=== PATIENT | female | born 1985 | race American Indian/Alaskan Native ===

== ENCOUNTER 2017-03-30 14:56 | Emergency (ER) | payer MEDICAID ==
[2017-03-30 16:47] LABS: Basophils % (Auto) 0.2 % (0.0-1.8); Hemoglobin 10.5 gm/dl (10.1-14.3)
[2017-03-30 16:50] LABS: Anion Gap 19 mmol/L; BUN/Creatinine Ratio 18.88; Blood Urea Nitrogen 17 mg/dL (7-17); Calcium 9.3 mg/dL (8.4-10.2); Carbon Dioxide 24 mmol/L (22-30); Chloride 100.9 mmol/L (98-107); Glucose 89 mg/dL (65-100); Potassium 3.9 mmol/L (3.6-5.0); Sodium 140 mmol/L (137-145)
[2017-03-30 17:27] LABS: Hematocrit 33.6 % (30.3-42.9); Mean Corpuscular HGB Conc 31 % (30-34); Mean Corpuscular Hemoglobin 26 pg (28-32); Mean Corpuscular Volume 84 fl (79-97); Platelet Count 483 K/mm3 (140-440); Red Blood Count 3.99 M/mm3 (3.65-5.03); Red Cell Distribution Width 16.2 % (13.2-15.2)
[2017-03-30] MEDS ORDERED: DILAUDID IM ONE (21:42)
--- NOTE | 2017-03-30 21:45 | Emergency Department Report ---
ED General Adult HPI - General Chief complaint: Chest Pain Stated complaint: BUG BITE/RIGHT LEG Time Seen by Provider: 03/30/17 21:10 Source: patient, EMS (ems notes not available at time of chart dictation), RN notes reviewed Mode of arrival: Stretcher Limitations: No Limitations - History of Present Illness Initial comments: This is a 32-year-old female. She is previously unknown to me. She reports a past medical history of asthma, hypertension, obesity and preeclampsia. The patient presents to the ER complaining of right lateral leg pain. It is distal to the knee. It is sharp. It increases with palpation and range of motion. It decreases with rest. Patient denies proximal thigh pain and hip pain. She denies knee pain. While in the ER, the patient did complain of chest burning and pain. This started earlier on in the morning. It has since resolved. The pain does not radiate to the back, arms or neck. There is no vomiting diaphoresis. There is no shortness of breath. The patient does not take control tablets. No recent trips greater than 4 hours. No recent hospital admissions. -: Gradual Location: chest, right, lower extremity Radiation: non-radiation Severity scale (0 -10): 10 Quality: aching Improves with: rest Worsens with: movement Associated Symptoms: chest pain - Related Data Previous Rx's Medication Instructions Recorded Last Taken Type ALBUTEROL Inhaler [ProAir HFA 2 puff IH QID PRN #1 inhalation 08/20/15 Unknown Rx Inhaler] Azithromycin [Zithromax TAB] 250 mg PO QDAY #4 tablet 08/20/15 Unknown Rx Omeprazole [PriLOSEC] 20 mg PO QDAY #7 capsule. 08/20/15 Unknown Rx Prednisone [predniSONE 5 mg (6-Day 5 mg PO .TAPER #1 tab.ds.pk 08/20/15 Unknown Rx Pack, 21 Tabs)] Doxycycline [Vibramycin] 100 mg PO Q12HR #10 capsule 03/31/17 Unknown Rx Ibuprofen [Motrin] 600 mg PO Q8H PRN #30 tablet 03/31/17 Unknown Rx Allergies Allergy/AdvReac Type Severity Reaction Status Date / Time levofloxacin [From Levaquin] Allergy Angioedema Verified 07/29/15 11:58 Penicillins Allergy Shortness Verified 07/29/15 11:58 of Breath ED Review of Systems ROS: Stated complaint: BUG BITE/RIGHT LEG Other details as noted in HPI Constitutional: denies: malaise Eyes: denies: vision change ENT: denies: epistaxis Respiratory: denies: wheezing Cardiovascular: chest pain Gastrointestinal: denies: abdominal pain Genitourinary: denies: dysuria Musculoskeletal: arthralgia, myalgia Skin: rash Neurological: denies: headache Psychiatric: anxiety ED Past Medical Hx - Past Medical History Hx Hypertension: Yes Hx Asthma: Yes Additional medical history: PREECLAMPSIA. OBESITY - Surgical History Past Surgical History?: Yes Hx Breast Surgery: No - Social History Smoking Status: Current Every Day Smoker Substance Use Type: None, Alcohol - Medications Home Medications: Home Medications Medication Instructions Recorded Confirmed Last Taken Type ALBUTEROL Inhaler [ProAir HFA 2 puff IH QID PRN #1 inhalation 08/20/15 Unknown Rx Inhaler] Azithromycin [Zithromax TAB] 250 mg PO QDAY #4 tablet 08/20/15 Unknown Rx Omeprazole [PriLOSEC] 20 mg PO QDAY #7 capsule.dr 08/20/15 Unknown Rx Prednisone [predniSONE 5 mg (6-Day 5 mg PO .TAPER #1 tab.ds.pk 08/20/15 Unknown Rx Pack, 21 Tabs)] Doxycycline [Vibramycin] 100 mg PO Q12HR #10 capsule 03/31/17 Unknown Rx Ibuprofen [Motrin] 600 mg PO Q8H PRN #30 tablet 03/31/17 Unknown Rx ED Physical Exam - General Limitations: Physical Limitation General appearance: alert, in no apparent distress - Head Head exam: Present: atraumatic, normocephalic - Eye Eye exam: Present: normal appearance - ENT ENT exam: Present: normal exam, normal orophraynx, mucous membranes moist, normal external ear exam - Neck Neck exam: Present: normal inspection, full ROM. Absent: tenderness, meningismus - Respiratory Respiratory exam: Present: normal lung sounds bilaterally. Absent: respiratory distress, wheezes, rales, rhonchi, stridor, chest wall tenderness, accessory muscle use, decreased breath sounds, prolonged expiratory - Cardiovascular Cardiovascular Exam: Present: regular rate, normal rhythm, normal heart sounds. Absent: bradycardia, tachycardia, irregular rhythm, systolic murmur, diastolic murmur, rubs, gallop - GI/Abdominal GI/Abdominal exam: Present: soft, normal bowel sounds. Absent: distended, tenderness, guarding, rebound, rigid, pulsatile mass - Extremities Exam Extremities exam: Present: full ROM, tenderness, normal capillary refill, calf tenderness, other (the compartments are soft. There is right lateral distal extremity induration, and a punctate lesion, as well as hyperpigmentation. 2+ pulses noted in the bilateral upper and lower extremities. There is no palpable cord. There is a negative Homans sign.The pelvis is stable. There is no long bony tenderness. There is no crepitus.). Absent: pedal edema, joint swelling - Back Exam Back exam: Present: normal inspection - Neurological Exam Neurological exam: Present: alert, oriented X3 (patient has 5 out of 5 strength in bilateral upper and lower extremities. She is moving the bilateral upper and lower extremity is without difficulty), other (Extraocular movements intact. Tongue midline. No facial droop. Facial sensation intact to light touch in the V1, V2, V3 distribution bilaterally. 5 and 5 strength in 4 extremities.. Sensation is intact to light touch in 4 extremities.). Absent: motor sensory deficit - Psychiatric Psychiatric exam: Present: anxious - Skin Skin exam: Present: warm, erythema. Absent: rash ED Course Vital Signs 03/30/17 03/30/17 03/30/17 15:49 20:33 20:43 Temperature 98.7 F Pulse Rate 102 H 99 H Respiratory 16 18 20 Rate Blood Pressure 134/85 Blood Pressure [Left] Blood Pressure 140/84 [Right] O2 Sat by Pulse 100 100 100 Oximetry 03/30/17 03/30/17 03/30/17 22:00 22:03 22:49 Temperature 98.0 F Pulse Rate 101 H Respiratory 18 20 14 Rate Blood Pressure Blood Pressure [Left] Blood Pressure 130/76 [Right] O2 Sat by Pulse Oximetry 03/30/17 03/30/17 03/31/17 22:50 22:51 00:00 Temperature 97.8 F Pulse Rate 96 H 108 H 99 H Respiratory 12 13 18 Rate Blood Pressure 154/90 154/90 Blood Pressure 139/81 [Left] Blood Pressure [Right] O2 Sat by Pulse 100 99 100 Oximetry 03/31/17 00:01 Temperature Pulse Rate Respiratory Rate Blood Pressure 180/136 Blood Pressure [Left] Blood Pressure [Right] O2 Sat by Pulse 94 Oximetry - Reevaluation(s) Reevaluation #1: 03/30/17 22:30 Differential diagnosis: Cellulitis, myositis, DVT, ACS, pneumonia, pulmonary embolus, Gaston's cyst, chondritis, costochondritis, anxiety Assessment and plan: 32-year-old female with 2 complaints. Her main complaint is right lower extremity pain. The lesion is indurated and tender. Most likely cellulitis. Gaston's cyst and DVT also a possibility, although the patient has no risk factors for DVT, she is low risk by well's criteria. While in the ER, she did complain of chest pain. She has 2 negative troponins, EKG is morphologically unremarkable 2, low risk by well's criteria, low risk by STELLA score, low risk by heart score. She states that she is not . We will check a d-dimer, creatinine kinase, x-ray of the chest, x-ray the fibula/ tibia. Compartments are soft. Pulses are present. Patient will be given crutches if she is unable to weight bear. Reevaluation #2: 03/31/17 01:39 The patient is reevaluated by myself multiple times while in the department. She is speaking on the cell phone and in no distress. CT scan negative for pulmonary embolus. Outpatient vascular lab DVT study ordered. She will be discharged with pain medication, empiric antibiotics, crutches, weightbearing as tolerated. Return precautions are reviewed. ED Medical Decision Making - Lab Data Result diagrams: 03/30/17 16:05 03/30/17 16:05 Vital Signs 03/30/17 03/30/17 03/30/17 15:49 20:33 20:43 Temperature 98.7 F Pulse Rate 102 H 99 H Respiratory 16 18 20 Rate Blood Pressure 134/85 Blood Pressure 140/84 [Right] O2 Sat by Pulse 100 100 100 Oximetry 03/30/17 22:03 Temperature Pulse Rate Respiratory 20 Rate Blood Pressure Blood Pressure [Right] O2 Sat by Pulse Oximetry Vital Signs 03/30/17 03/30/17 03/30/17 15:49 20:33 20:43 Temperature 98.7 F Pulse Rate 102 H 99 H Respiratory 16 18 20 Rate Blood Pressure 134/85 Blood Pressure 140/84 [Right] O2 Sat by Pulse 100 100 100 Oximetry 03/30/17 22:03 Temperature Pulse Rate Respiratory 20 Rate Blood Pressure Blood Pressure [Right] O2 Sat by Pulse Oximetry Lab Results 03/30/17 03/30/17 03/30/17 Range/Units 16:05 16:05 18:12 WBC 13.0 H (4.5-11.0) K/mm3 RBC 3.99 (3.65-5.03) M/mm3 Hgb 10.5 (10.1-14.3) gm/dl Hct 33.6 (30.3-42.9) % MCV 84 (79-97) fl MCH 26 L (28-32) pg MCHC 31 (30-34) % RDW 16.2 H (13.2-15.2) % Plt Count 483 H (140-440) K/mm3 Lymph % (Auto) 10.0 L (13.4-35.0) % [place] % (Auto) 7.6 H (0.0-7.3) % Eos % (Auto) 1.0 (0.0-4.3) % Baso % (Auto) 0.2 (0.0-1.8) % Lymph # 1.3 (1.2-5.4) K/mm3 [place] # 1.0 H (0.0-0.8) K/mm3 Eos # 0.1 (0.0-0.4) K/mm3 Baso # 0.0 (0.0-0.1) K/mm3 Seg Neutrophils % 81.2 H (40.0-70.0) % Seg Neutrophils # 10.6 H (1.8-7.7) K/mm3 Sodium 140 (137-145) mmol/L Potassium 3.9 (3.6-5.0) mmol/L Chloride 100.9 (98-107) mmol/L Carbon Dioxide 24 (22-30) mmol/L Anion Gap 19 mmol/L BUN 17 (7-17) mg/dL Creatinine 0.9 (0.7-1.2) mg/dL Estimated GFR > 60 ml/min BUN/Creatinine Ratio 18.88 % Glucose 89 (65-100) mg/dL Calcium 9.3 (8.4-10.2) mg/dL Troponin T < 0.010 < 0.010 (0.00-0.029) ng/mL - EKG Data -: EKG Interpreted by Ar EKG shows normal: sinus rhythm - EKG Data 03/30/17 22:31 EKG #1 demonstrates sinus tachycardia, 101 bpm, normal axis, QTC 466 ms. High left ventricular voltage is present by criteria in lead aVL and lead 1. Atrial enlargement is suggested. Not morphologically consistent with STEMI. When compared to prior EKG from 2016, atrial enlargement and high left ventricular voltage appear to be new. EKG #2 demonstrates normal sinus, normal intervals, QTC 450 ms, otherwise unchanged compared to prior. Not morphologically consistent with STEMI Critical care attestation.: If time is entered above; I have spent that time in minutes in the direct care of this critically ill patient, excluding procedure time. ED Disposition Clinical Impression: Chest pain, Right leg pain Disposition: TO HOME OR SELFCARE Is pt being admited?: No Does the pt Need Aspirin: No Condition: Good Instructions: Chest Pain (ED), Arthralgia (ED) Additional Instructions: Take the pain medication, antibiotics as directed. Make certain to eat prior to taking the medications. Contact the vascular lab anytime after 9:00 in the morning as soon as possible, to arrange outpatient ultrasound of the right lower extremity. Make certain to bring the requisition form with you. Weight-bear as tolerated, use the crutches as needed. 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 Return to the ER right away with new pain , worsened pain, migration of pain, fevers, chills, chest pain, shortness of breath, streaking, worsened redness, worsening pain, confusion, inability to tolerate liquid feeds. Prescriptions: Doxycycline [Vibramycin] 100 mg PO Q12HR #10 capsule Ibuprofen [Motrin] 600 mg PO Q8H PRN #30 tablet PRN Reason: Pain Referrals: PRIMARY CAREMD [Primary Care Provider] - 3-5 Days ELE PERDOMO MD [Staff Physician] - 3-5 Days ABIGAIL VILLALPANDO MD [Staff Physician] - 3-5 Days KATEY TOWNSEND MD [Staff Physician] - 3-5 Days
[2017-03-31] MEDS ORDERED: NACL ONE (00:53)
--- NOTE | 2017-03-31 01:11 | XRay Report ---
FINAL REPORT PROCEDURE: XR TIBIA FIBULA 2V RT TECHNIQUE: RIGHT tibia and fibula radiographs, AP and lateral views. CPT 29406 HISTORY: rle pain COMPARISON: No prior studies are available for comparison. FINDINGS: Fracture (s) and/or Dislocation(s): None . Joint space(s): Normal . Soft tissues: Normal . Bone mineralization: Normal . Foreign bodies: None . IMPRESSION: No evidence of an acute fracture or dislocation.
--- NOTE | 2017-03-31 01:13 | XRay Report ---
FINAL REPORT PROCEDURE: XR CHEST 1V AP TECHNIQUE: Chest radiograph anteroposterior view. CPT 13949 HISTORY: cp sob COMPARISON: No prior studies are available for comparison. FINDINGS: Heart: Normal. Mediastinum/Vessels: Normal. Lungs/Pleural space: Normal. Bony thorax: No acute osseous abnormality. Life support devices: None. IMPRESSION: No acute cardiopulmonary abnormality.
--- NOTE | 2017-03-31 01:30 | Cat Scan Report ---
FINAL REPORT PROCEDURE: CT ANGIO CHEST TECHNIQUE: Computerized tomographic angiography of the chest was performed after the IV injection of iodinated nonionic contrast including image processing. The image data was postprocessed using 2-dimensional multiplanar reformatted (MPR) and 3-dimensional (MIP and/or volume rendered) techniques. HISTORY: cp sob COMPARISON: No prior studies are available for comparison. FINDINGS: Heart and pericardium: Normal. Thoracic aorta: Normal. Pulmonary vasculature: There is no evidence of pulmonary arterial emboli.. Lymph nodes: No enlarged thoracic lymph nodes. Lungs: The lungs are clear. No infiltrate, effusion or pneumothorax. The central airway is patent. Pleural space: No effusion, thickening, or pneumothorax. Musculoskeletal structures: No significant abnormality. Upper abdominal structures: No significant abnormality. IMPRESSION: There is no evidence of pulmonary arterial emboli. The lungs are clear without infiltrate, effusion or pneumothorax.
[2017-03-31 01:40] VITALS: BP 180/136
== END 2017-03-31 02:10 | disposition home or self-care (01) ==
LOC: ED 14:56
DX: M79.604 Pain in right leg (principal); R07.9 Chest pain, unspecified; I10 Essential (primary) hypertension; J45.909 Unspecified asthma, uncomplicated; F17.200 Nicotine dependence, unspecified, uncomplicated
CPT/HCPCS: 36415; 71010; 71275; 73590; 80048; 82550; 84484; 84702; 85025; 85379; 85610; 93005; 93010; 96372; 99285; J1170; Q9967

== ENCOUNTER 2018-03-26 17:54 | Emergency (ER) | payer MEDICAID ==
[2018-03-26 18:11] VITALS: BP 133/81
[2018-03-26] MEDS ORDERED: ASPIRIN PO ONE (18:17)
== END 2018-03-27 00:58 | disposition left against medical advice (07) ==
LOC: ED 17:54
DX: R07.89 Other chest pain (principal); Z53.21 Procedure and treatment not carried out due to patient leaving prior to being seen by health care provider
CPT/HCPCS: 93005; 93010

== ENCOUNTER 2018-11-24 19:08 | Inpatient (IN) | payer MEDICAID ==
--- NOTE | 2018-11-24 19:29 | Emergency Department Report ---
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 Due to findings the following was ordered: ED Disposition for MSE Condition: Stable
--- NOTE | 2018-11-24 19:57 | Cat Scan Report ---
PROCEDURE: CT HEAD/BRAIN WO CON TECHNIQUE: Computerized tomography of the head was performed without contrast material. Imaging was obtained in axial increments. CT DOSE LENGTH PRODUCT: 805.42 mGycm HISTORY: Stroke symptoms COMPARISONS: CT head 02/07/2018 . FINDINGS: The ventricular system is normal in size and configuration. There is no evidence for parenchymal volu me loss. There is no evidence for mass lesion, mass effect, midline shift, acute intracranial hemorrhage, or a cute ischemia/ infarction. No evidence for acute skull fracture is seen. No abnormality in the overlying scalp soft tissues is s een. Visualized paranasal sinuses demonstrates mucosal thickening in the left sphenoid sinus again noted. IMPRESSION: No acute intracranial process noted. No change. Mild chronic sinusitis in the left sphenoid sinus This document is electronically signed by Brittany Jeffery MD., November 24 2018 07:55:35 PM ET
[2018-11-24] MEDS ORDERED: ASPIRIN PO ONE (19:59)
[2018-11-24] MEDS ORDERED: ZOFRAN IV ONE (19:59)
[2018-11-24] MEDS ORDERED: SUBLIMAZE IV ONE ×2 (19:59→22:05)
[2018-11-24] MEDS ORDERED: NITRO-BID 2% TP ONE (19:59)
--- NOTE | 2018-11-24 19:59 | Emergency Department Report ---
HPI - General Chief Complaint: Neuro Symptoms/Deficit Time Seen by Provider: 11/24/18 19:28 - HPI HPI: Room 22 The patient is a 33-year-old female presenting with a chief complaint left upper extremity numbness and headache. The patient states her symptoms began 4 days ago and has been continuous. Patient denies dysarthria or dysphagia. Patient has a history of cocaine use and states her last use occurred approximately one week ago. The patient states she's also had intermittent chest pain since last night Location: Left upper extremity Duration: 5 days Quality: Numbness, headache Severity: Moderate Modifying factors: [see above] Context: [see above] Mode of transportation: [not driving] ED Past Medical Hx - Past Medical History Hx Hypertension: Yes Hx CVA: Yes (right-sided weakness) Hx Congestive Heart Failure: Yes Hx Asthma: Yes Hx COPD: Yes Additional medical history: PREECLAMPSIA. OBESITY, DRUG USE-COCAINE - Family History Family history: no significant - Social History Smoking Status: Never Smoker (1/3 pack per day) Substance Use Type: Cocaine - Medications Home Medications: Home Medications Medication Instructions Recorded Confirmed Last Taken Type hydroCHLOROthiazide [HCTZ] 12.5 mg PO QDAY 02/07/18 02/07/18 02/07/18 History Aspirin [Aspirin TAB] 325 mg PO QDAY #30 tablet 02/10/18 Unknown Rx AtorvaSTATin [Lipitor] 40 mg PO QHS #30 tablet 02/10/18 Unknown Rx prednisoLONE ACETATE 1% [Pred 2 drops OU Q2H #2 bottle 02/10/18 Unknown Rx Forte 1%] Acetamin/Codeine 120-12Mg/5 ml 5 ml PO TID PRN #50 ml 10/02/18 Unknown Rx [Tylenol/Codeine] Azithromycin [Zithromax] 250 mg PO DAILY #6 tablet 10/02/18 Unknown Rx Prednisone [predniSONE 5 mg (6-Day 5 mg PO .TAPER #1 tab.ds.pk 10/02/18 Unknown Rx Pack, 21 Tabs)] ED Review of Systems ROS: Stated complaint: GREENE/BLURRED VISION Other details as noted in HPI Constitutional: denies: no symptoms reported Eyes: denies: eye pain ENT: denies: throat pain Respiratory: no symptoms reported Cardiovascular: denies: chest pain Endocrine: no symptoms reported Gastrointestinal: denies: abdominal pain Genitourinary: denies: dysuria Musculoskeletal: denies: back pain Neurological: headache, numbness Physical Exam - Physical Exam Vital Signs: Vital Signs 11/24/18 19:28 Temperature 97.8 F Pulse Rate 97 H Respiratory 20 Rate Blood Pressure 165/112 O2 Sat by Pulse 97 Oximetry Physical Exam: GENERAL: The patient is well-developed well-nourished female sitting on stretcher tearful appearing to be in mild discomfort. [] HEENT: Normocephalic. Atraumatic. Extraocular motions are intact. Patient has moist mucous membranes. Tearful NECK: Supple. Trachea midline CHEST/LUNGS: Clear to auscultation. There is no respiratory distress noted. HEART/CARDIOVASCULAR: Regular. There is no tachycardia. There is no gallop rub or murmur. ABDOMEN: Abdomen is soft, nontender. Patient has normal bowel sounds. There is no abdominal distention. SKIN: There is no rash. There is no edema. There is no diaphoresis. NEURO: The patient is awake, alert, and oriented. The patient is cooperative. The patient has no focal neurologic deficits. The patient has normal speech. Patient plans and numbness to the left upper extremity MUSCULOSKELETAL: There is no evidence of acute injury. NIHSS= 1 LOC a. Alert= 0 Not alert but arousable to minor stimuli=1 Not alert requires repeated or strong stimuli to move= 2 Responds only reflex motor or unresponsive=3 b. asks month and age answers both correctly= 0 answers one correctly= 1 answers neither correctly= 2 Best Gaze normal= 0 abnormal in one or both but forced deviation or total paresis absent= 1 forced deviation or total gaze paresis= 2 Visual no visual loss= 0 partial hemianopia= 1 complete hemianopia= 2 bilateral hemianopia= 3 Facial Palsy normal= 0 minor paralysis= 1 partial paralysis= 2 complete paralysis= 3 Motor Arm no drift= 0 drift before 10 secs but doesnt hit bed= 1 some effort against gravity= 2 no effort against gravity= 3 no movement= 4 Motor leg no drift= 0 drift before 5 secs but doesnt hit bed= 1 drifts to bed before 5 secs= 2 no effort against gravity= 3 no movement= 4 Limb ataxia absent=0 present in one limb= 1 present in two limbs= 2 Sensory normal= 0 (+)mild sensory loss= 1 severe (unaware of being touched)= 2 Best language mild/some loss of fluency= 1 severe= 2 mute= 3 Dysarthria normal= 0 slurs some words= 1 severe/unintelligible= 2 Extinction and Inattention no abnormality= 0 visual, tactile, auditory or personal inattention= 1 profound (doesnt recognize own hand or orients to only one side= 2 ED Course Vital Signs 11/24/18 19:28 Temperature 97.8 F Pulse Rate 97 H Respiratory 20 Rate Blood Pressure 165/112 O2 Sat by Pulse 97 Oximetry ED Medical Decision Making - Lab Data Result diagrams: 11/24/18 20:03 11/24/18 20:03 Laboratory Tests 11/24/18 11/24/18 11/24/18 19:28 19:30 19:30 WBC RBC Hgb Hct MCV MCH MCHC RDW Plt Count Lymph % (Auto) [place] % (Auto) Eos % (Auto) Baso % (Auto) Lymph # [place] # Eos # Baso # Seg Neutrophils % Seg Neutrophils # PT INR APTT Thrombin Time D-Dimer Sodium Potassium Chloride Carbon Dioxide Anion Gap BUN Creatinine Estimated GFR BUN/Creatinine Ratio Glucose POC Glucose 94 Calcium Total Bilirubin AST ALT Alkaline Phosphatase Total Creatine Kinase CK-MB (CK-2) CK-MB (CK-2) Rel Index Troponin T Total Protein Albumin Albumin/Globulin Ratio HCG, Qual Urine Color Yellow Urine Turbidity Clear Urine pH 5.0 Ur Specific [place] 1.024 Urine Protein <15 mg/dl Urine Glucose (UA) Neg Urine Ketones Neg Urine Blood Sm Urine Nitrite Neg Urine Bilirubin Neg Urine Urobilinogen < 2.0 Ur Leukocyte Esterase Neg Urine WBC (Auto) 2.0 Urine RBC (Auto) 3.0 U Epithel Cells (Auto) 1.0 Urine Bacteria (Auto) 1+ Hyaline Casts 6 Urine Mucus Few Urine HCG, Qual Negative Urine Opiates Screen Presumptive negative Urine Methadone Screen Presumptive negative Ur Barbiturates Screen Presumptive negative Ur Phencyclidine Scrn Presumptive negative Ur Amphetamines Screen Presumptive negative U Benzodiazepines Scrn Presumptive negative Urine Cocaine Screen Presumptive positive U Marijuana (THC) Screen Presumptive negative Drugs of Abuse Note Disclamer Plasma/Serum Alcohol 11/24/18 11/24/18 11/24/18 20:03 20:03 20:03 WBC 9.3 RBC 4.02 Hgb 12.2 Hct 36.4 MCV 91 MCH 30 MCHC 34 RDW 14.0 Plt Count 401 Lymph % (Auto) 22.4 [place] % (Auto) 8.7 H Eos % (Auto) 2.5 Baso % (Auto) 0.6 Lymph # 2.1 [place] # 0.8 Eos # 0.2 Baso # 0.1 Seg Neutrophils % 65.8 Seg Neutrophils # 6.1 PT 13.3 INR 0.95 APTT 28.3 Thrombin Time 15.1 D-Dimer Sodium 140 Potassium 3.7 Chloride 99.7 Carbon Dioxide 27 Anion Gap 17 BUN 12 Creatinine 0.7 Estimated GFR > 60 BUN/Creatinine Ratio 17 Glucose 90 POC Glucose Calcium 9.4 Total Bilirubin 0.20 AST 29 ALT 33 Alkaline Phosphatase 93 Total Creatine Kinase 670 H CK-MB (CK-2) 3.5 CK-MB (CK-2) Rel Index 0.5 Troponin T < 0.010 Total Protein 7.7 Albumin 4.0 Albumin/Globulin Ratio 1.1 HCG, Qual Urine Color Urine Turbidity Urine pH Ur Specific [place] Urine Protein Urine Glucose (UA) Urine Ketones Urine Blood Urine Nitrite Urine Bilirubin Urine Urobilinogen Ur Leukocyte Esterase Urine WBC (Auto) Urine RBC (Auto) U Epithel Cells (Auto) Urine Bacteria (Auto) Hyaline Casts Urine Mucus Urine HCG, Qual Urine Opiates Screen Urine Methadone Screen Ur Barbiturates Screen Ur Phencyclidine Scrn Ur Amphetamines Screen U Benzodiazepines Scrn Urine Cocaine Screen U Marijuana (THC) Screen Drugs of Abuse Note Plasma/Serum Alcohol 11/24/18 11/24/18 11/24/18 20:03 21:10 21:16 WBC RBC Hgb Hct MCV MCH MCHC RDW Plt Count Lymph % (Auto) [place] % (Auto) Eos % (Auto) Baso % (Auto) Lymph # [place] # Eos # Baso # Seg Neutrophils % Seg Neutrophils # PT INR APTT Thrombin Time D-Dimer 318.58 H Sodium Potassium Chloride Carbon Dioxide Anion Gap BUN Creatinine Estimated GFR BUN/Creatinine Ratio Glucose POC Glucose Calcium Total Bilirubin AST ALT Alkaline Phosphatase Total Creatine Kinase CK-MB (CK-2) CK-MB (CK-2) Rel Index Troponin T Total Protein Albumin Albumin/Globulin Ratio HCG, Qual Negative Urine Color Urine Turbidity Urine pH Ur Specific [place] Urine Protein Urine Glucose (UA) Urine Ketones Urine Blood Urine Nitrite Urine Bilirubin Urine Urobilinogen Ur Leukocyte Esterase Urine WBC (Auto) Urine RBC (Auto) U Epithel Cells (Auto) Urine Bacteria (Auto) Hyaline Casts Urine Mucus Urine HCG, Qual Urine Opiates Screen Urine Methadone Screen Ur Barbiturates Screen Ur Phencyclidine Scrn Ur Amphetamines Screen U Benzodiazepines Scrn Urine Cocaine Screen U Marijuana (THC) Screen Drugs of Abuse Note Plasma/Serum Alcohol < 0.01 - EKG Data -: EKG Interpreted by Me EKG shows normal: sinus rhythm Rate: normal - EKG Data When compared to previous EKG there are: previous EKG unavailable Interpretation: other (no ischemic changes seen) - Radiology Data Radiology results: report reviewed (CT head, chest x-ray, CT chest), image reviewed (CT head, chest x-ray, CT chest) interpreted by me: Chest x-ray-no focal infiltrates, no pneumothorax [facility] [address] [place] [address] Cat Scan Report Signed Patient: CARLA SANCHEZ R#: [id number] : 1985 Acct:[id number] Age/Sex: 33 / F ADM Date: 11/24/18 Loc: ED Attending Dr: Ordering Physician: FROYLAN REYES Date of Service: 11/24/18 Procedure(s): CT head/brain wo con Accession Number(s): [id number] cc: FROYLAN REYES PROCEDURE: CT HEAD/BRAIN WO CON TECHNIQUE: Computerized tomography of the head was performed without contrast material. Imaging was obtained in axial increments. CT DOSE LENGTH PRODUCT: 805.42 mGycm HISTORY: Stroke symptoms COMPARISONS: CT head 02/07/2018 . FINDINGS: The ventricular system is normal in size and configuration. There is no evidence for parenchymal volume loss. There is no evidence for mass lesion, mass effect, midline shift, acute intracranial hemorrhage, or acute ischemia/ infarction. No evidence for acute skull fracture is seen. No abnormality in the overlying scalp soft tissues is seen. Visualized paranasal sinuses demonstrates mucosal thickening in the left sphenoid sinus again noted. IMPRESSION: No acute intracranial process noted. No change. Mild chronic sinusitis in the left sphenoid sinus This document is electronically signed by Brittany Jeffery MD., November 24 2018 07:55:35 PM ET Transcribed By: [facility] Dictated By: BRITTANY JEFFERY MD Electronically Authenticated By: BRITTANY JEFFERY MD Signed Date/Time: 11/24/181956 DD/ 45 TD/TT: 11/24/181945 [address] [address] XRay Report Signed Patient: CARLA SANCHEZ R#: [id number] : 1985 Acct:[id number] Age/Sex: 33 / F ADM Date: 11/24/18 Loc: ED Attending Dr: Ordering Physician: CURT ANDREWS MD Date of Service: 11/24/18 Procedure(s): XR chest 1V ap Accession Number(s): [id number] cc: CURT ANDREWS MD Fluoro Time In Minutes: PROCEDURE: XR CHEST 1V AP TECHNIQUE: Chest radiograph single view. HISTORY: chest pain COMPARISONS: None . FINDINGS: Heart: Normal. Mediastinum/Vessels: Normal. Lungs/Pleural space: Normal. Bony thorax: No acute osseous abnormality. Life support devices: None. IMPRESSION: No acute cardiopulmonary abnormality. This document is electronically signed by Leonora Isaacs DO., November 24 2018 09:53:12 PM ET Transcribed By: [facility] Dictated By: LEONORA ISAACS MD Electronically Authenticated By: LEONORA ISAACS MD Signed Date/Time: 11/24/182154 DD/ 31 TD/TT: 11/24/182132 [address] [address] Cat Scan Report Signed Patient: CARLA SANCHEZ R#: [id number] : 1985 Acct:[id number] Age/Sex: 33 / F ADM Date: 11/24/18 Loc: ED Attending Dr: Ordering Physician: CURT ANDREWS MD Date of Service: 11/24/18 Procedure(s): CT angio chest Accession Number(s): [id number] cc: CURT ANDREWS MD PROCEDURE: CT ANGIO CHEST TECHNIQUE: Computerized tomographic angiography of the chest was performed after the IV injection of iodinated nonionic contrast including image processing. The image data was postprocessed using 2-dimensional multiplanar reformatted (MPR) and 3-dimensional (MIP and/or volume rendered) techniques. Automated exposure control, adjustment of mA and/or kV according to patient size, or iterative reconstruction dose optimization techniques were utilized. CT DOSE LENGTH PRODUCT: mGycm HISTORY: chest pain COMPARISONS: March 31, 2017 . FINDINGS: Heart and pericardium: Normal. Thoracic aorta: Normal. Pulmonary vasculature: Normal. Lymph nodes: No enlarged thoracic lymph nodes. Lungs: Normal. Pleural space: No effusion, thickening, or pneumothorax. Musculoskeletal structures: Mild degree of dextroscoliosis is noted.. Upper abdominal structures: No significant abnormality. IMPRESSION: No acute abnormality. This document is electronically signed by Estrella Arteaga MD., November 24 2018 11:53:03 PM ET Transcribed By: [facility] Dictated By: ESTRELLA ARTEAGA Electronically Authenticated By: ESTRELLA ARTEAGA Signed Date/Time: 11/24/182354 DD/ 23 TD/TT: 11/24/182324 - Differential Diagnosis CVA, ACS, pericarditis, GERD, cocaine abuse Critical care attestation.: If time is entered above; I have spent that time in minutes in the direct care of this critically ill patient, excluding procedure time. ED Disposition Clinical Impression: Left upper extremity numbness, Chest pain, Headache, Cocaine abuse Disposition: - OP ADMIT IP TO THIS HOSP Is pt being admited?: Yes Does the pt Need Aspirin: Yes Condition: Fair Instructions: Chest Pain (ED) Referrals: MARISELA CAMACHO MD [Primary Care Provider] - 3-5 Days Time of Disposition: 00:33 (hospitalist paged (Dr Peters))
[2018-11-24 20:20] LABS: Basophils # (Auto) 0.1 K/mm3 (0.0-0.1); Basophils % (Auto) 0.6 % (0.0-1.8); Eosinophils # (Auto) 0.2 K/mm3 (0.0-0.4); Eosinophils % (Auto) 2.5 % (0.0-4.3); Hematocrit 36.4 % (30.3-42.9); Hemoglobin 12.2 gm/dl (10.1-14.3); Lymphocytes # (Auto) 2.1 K/mm3 (1.2-5.4); Lymphocytes % (Auto) 22.4 % (13.4-35.0); Mean Corpuscular HGB Conc 34 % (30-34); Mean Corpuscular Volume 91 fl (79-97); Monocytes # (Auto) 0.8 K/mm3 (0.0-0.8); Monocytes % (Auto) 8.7 % (0.0-7.3); Platelet Count 401 K/mm3 (140-440); Red Blood Count 4.02 M/mm3 (3.65-5.03)
[2018-11-24 20:32] LABS: INR 0.95 (0.87-1.13); Partial Thromboplastin Time 28.3 Sec. (24.2-36.6); Thrombin Time 15.1 Sec. (15.1-19.6)
[2018-11-24 20:45] LABS: Creatine Kinase MB 3.5 ng/mL (0.0-4.0)
[2018-11-24 20:46] LABS: Alanine Aminotransferase 33 units/L (7-56); BUN/Creatinine Ratio 17; Blood Urea Nitrogen 12 mg/dL (7-17); Calcium 9.4 mg/dL (8.4-10.2); Hemolysis Index 27
--- NOTE | 2018-11-24 21:55 | XRay Report ---
PROCEDURE: XR CHEST 1V AP TECHNIQUE: Chest radiograph single view. HISTORY: chest pain COMPARISONS: None . FINDINGS: Heart: Normal. Mediastinum/Vessels: Normal. Lungs/Pleural space: Normal. Bony thorax: No acute osseous abnormality. Life support devices: None. IMPRESSION: No acute cardiopulmonary abnormality. This document is electronically signed by Leonora Isaacs DO., November 24 2018 09:53:12 PM ET
[2018-11-24 22:21] LABS: Amphetamine Screen,Urine PRESUMPTIVE NEGATIVE; Benzodiazepines Screen,Urine PRESUMPTIVE NEGATIVE; Cannabinoid Screen,Urine PRESUMPTIVE NEGATIVE; Methadone Screen,Urine PRESUMPTIVE NEGATIVE; Opiate Screen,Urine PRESUMPTIVE NEGATIVE
[2018-11-24 22:33] LABS: Bacteria,Urine 1+ /HPF (Negative); Bilirubin,Urine NEG (Negative); Blood,Urine SM (Negative); Color,Urine Yellow (Yellow); Hyaline Casts,Urine 6 /LPF; Mucus,Urine FEW /HPF; Protein,Urine <15 mg/dL mg/dL (Negative); Urobilinogen,Urine < 2.0 mg/dL (<2.0)
[2018-11-24 22:36] LABS: Cocaine Screen,Urine PRESUMPTIVE POSITIVE; HCG Qualitative,Urine Negative (Negative)
--- NOTE | 2018-11-24 23:55 | Cat Scan Report ---
PROCEDURE: CT ANGIO CHEST TECHNIQUE: Computerized tomographic angiography of the chest was performed after the IV injection of iodinated nonionic contrast including image processing. The image data was postprocessed using 2-di mensional multiplanar reformatted (MPR) and 3-dimensional (MIP and/or volume rendered) techniques. Au tomated exposure control, adjustment of mA and/or kV according to patient size, or iterative reconstr uction dose optimization techniques were utilized. CT DOSE LENGTH PRODUCT: mGycm HISTORY: chest pain COMPARISONS: March 31, 2017 . FINDINGS: Heart and pericardium: Normal. Thoracic aorta: Normal. Pulmonary vasculature: Normal. Lymph nodes: No enlarged thoracic lymph nodes. Lungs: Normal. Pleural space: No effusion, thickening, or pneumothorax. Musculoskeletal structures: Mild degree of dextroscoliosis is noted.. Upper abdominal structures: No significant abnormality. IMPRESSION: No acute abnormality. This document is electronically signed by Atul Arteaga MD., November 24 2018 11:53:03 PM ET
[2018-11-25] MEDS ORDERED: NITROSTAT SL PRN (01:32)
[2018-11-25] MEDS ORDERED: ZOFRAN IV PRN (01:33)
[2018-11-25] MEDS ORDERED: TYLENOL PO PRN (01:33)
[2018-11-25] MEDS ORDERED: NITRO-BID 2% TP ONE (06:39)
--- NOTE | 2018-11-25 07:06 | History and Physical Report ---
CHIEF COMPLAINT: Numbness and tingling in the left upper extremity. OTHER COMPLAINTS: Include chest pain and headache. HISTORY OF PRESENTING ILLNESS: The patient is a 33-year-old female who states she was having left upper extremity numbness and also was having headaches and then has been having intermittent chest pain the night prior to presentation. There was no history of diaphoresis. No history of nausea or vomiting, and also there was no associated shortness of breath and the patient presented for evaluation. PAST MEDICAL HISTORY: Pertinent for cerebrovascular accident with right-sided weakness, congestive heart failure, asthma, COPD, obesity and drug use, notably cocaine. PAST SURGICAL HISTORY: Unremarkable. FAMILY HISTORY: Family history is noncontributory. SOCIAL HISTORY: The patient smokes cigarettes, abuses cocaine and it is not clear whether the patient drinks alcohol. MEDICATIONS: The patient's home medications include Tylenol with Codeine liquid 5 mL by mouth 3 times daily, aspirin 325 mg by mouth daily, Lipitor 40 mg by mouth daily, hydrochlorothiazide 12.5 mg by mouth daily, Pred Forte 2 drops to right eye every 2 hours, prednisone dose pack with unclear status whether the patient has completed the dose pack. Also, the patient was taking Zithromax Z-Kleber, it is not clear whether the patient has completed the intake of medication. ALLERGIES: THE PATIENT IS ALLERGIC TO PENICILLIN AND LEVOFLOXACIN. REVIEW OF SYSTEMS: CONSTITUTIONAL: There is no fever, no chills, no diaphoresis. HEENT: There is headache, but no sore throat. CARDIOVASCULAR SYSTEM: Chest pain is present. No orthopnea. RESPIRATORY SYSTEM: There is no shortness of breath or cough. GASTROINTESTINAL SYSTEM: There is no nausea, no vomiting, no abdominal pain, diarrhea or constipation. NEUROLOGICAL SYSTEM: Numbness of the left upper extremity noted and headache noted. No change in mental status, no dizziness. MUSCULOSKELETAL SYSTEM: There is no joint pain or swelling. DERMATOLOGICAL SYSTEM: There is no skin rash, or itching. GENITOURINARY: There is no dysuria, hematuria or flank pain. Rest of system review is normal. PHYSICAL EXAMINATION: GENERAL: At the time of exam, the patient was found to be alert, oriented x 3 and not in acute distress. VITAL SIGNS: At the initial time of presentation show temperature of 97.8 degrees Fahrenheit, pulse of 97, respiration 20, blood pressure 165/112, O2 sat of 97% on room air. HEENT: Showed pupils to be equal, round, reactive to light and accommodating. Extraocular muscles are intact. NECK: Neck is supple with no JVD or carotid bruit. CARDIOVASCULAR SYSTEM: Showed normal first and second heart sounds with no gallops or murmurs. RESPIRATORY SYSTEM: Showed good air entry on both sides of the lungs with no abnormal breath sounds. GASTROINTESTINAL SYSTEM: Show abdomen to be full, soft, nontender with no organomegaly or rigidity. NEUROLOGICAL: Neuro exam shows no focal deficit. MUSCULOSKELETAL SYSTEM: Show no joint swelling or tenderness. DERMATOLOGICAL SYSTEM: Show no skin rash. GENITOURINARY SYSTEM: Showing no costovertebral angle tenderness. PERTINENT LABORATORY AND IMAGING STUDIES: The patient had CT angiogram of the chest that came back normal. Also, the patient had chest x-ray that came back normal. The patient's CT of the head without contrast shows no acute intracranial process and there is finding of mild chronic sinusitis in the left sphenoidal sinus. Lab results; the patient's CBC was unremarkable except for increase in monocyte count of 8.7 in the CBC differential. The patient's coagulation studies show high D-dimer level of 318.5 that prompted the order for CT angiogram. The patient's chemistry was unremarkable except for increase in total CPK of 670 with normal CK-MB, normal CK percentage index and normal troponin levels. The patient's test was unremarkable. Urinalysis was unremarkable. The patient's urine drug screen is positive for cocaine and alcohol level is unremarkable. DIAGNOSES: 1. Chest pain. 2. Cocaine abuse. 3. Left arm numbness. PLAN OF ACTION: 1. The patient will be admitted to telemetry. 2. The patient will have cardiac enzymes involving troponin, total CK, and CK-MB check every 6 hours x 2 more levels. 3. The patient will remain n.p.o. for Lexiscan stress test and the patient will be on aspirin 325 mg by mouth daily and will be on IV heparin 5000 units subcutaneous q. 12 hours for DVT prophylaxis. 4. The patient will be on nitro paste half inch to anterior chest wall q.i.d. and will be on IV Zofran 4 mg every 8 hours as needed for nausea and vomiting. 5. The patient will be on oxygen by nasal cannula 2 liter per minute. 6. The patient will have MRI of the brain without contrast to check for the cause of the left arm tingling and numbness. 7. The patient's order for heparin will be held until the MRI result is read. JOB# [id number] OCN/NTS
[2018-11-25] MEDS: NITRO-BID 2% TP SCH ×3 (07:23→17:37)
[2018-11-25] MEDS ORDERED: HEPARIN SUB-Q SCH (10:00)
[2018-11-25] MEDS ORDERED: LEXISCAN IV ONE (10:33)
[2018-11-25] MEDS: MORPHINE IV PRN (11:35)
[2018-11-25] MEDS ORDERED: MORPHINE ONE (11:35)
[2018-11-25 13:55] LABS: Creatine Kinase MB 1.9 ng/mL (0.0-4.0)
[2018-11-25] MEDS ORDERED: DepaCON 1,000 MG in NACL 0.9% 100 ML IV PRN (14:31)
--- NOTE | 2018-11-25 14:41 | Consultation ---
History of Present Illness Consult date: 11/25/18 Requesting physician: NORBERT RODRIGUEZ Reason for Consult: left arm tingling and numbness Chief complaint: headache, neck pain, left arm muscle cramp and paresthesias History of present illness: This 33-year-old right-handed -Turkish female states Sunday 8 days ago she developed black spots in her vision and 2 days later developed frontal headache became global associated with nausea but no photo phonophobia. That same Sunday she developed neck pain and stiffness, the pain being the left lateral neck and chest pain. Since last Sunday she developed numbness in the left arm with a charley horse feeling in the left arm. She says he year ago she was admitted for weakness on her right side have the same black spots and headache and was seen by me which I verified. MRI then showed recent ischemia right occipital white matter which did not fit with her symptoms, so I ordered then C and T spine MRIs but not done here. She said she went home with a walker. Touch aggression patch has not helped recurrent chest pain. Neck pain has gone but she still has headache and the left arm charley horse pain. Past History Past Medical History: hypertension, other (had preeclampsia in 2017). denies: diabetes, migraines Past Surgical History: No surgical history Social history: single (, 3 children alive and well), smoking (1 pack every 3 days), other (nasal cocaine 2 weeks ago, never IVDA, not working currently). denies: alcohol abuse (no alcohol), prescription drug abuse, IV drug use Family history: diabetes (maternal grandmother), hypertension (mother, maternal uncle, sister), stroke (mother, brain aneurysm in maternal first cousin), other (epilepsy in sororal niece and mother, one daughter has migraines at age 13) Medications and Allergies Allergies Allergy/AdvReac Type Severity Reaction Status Date / Time levofloxacin [From Levaquin] Allergy Angioedema Verified 10/02/18 14:13 Penicillins Allergy Shortness Verified 10/02/18 14:13 of Breath Home Medications Medication Instructions Recorded Confirmed Last Taken Type hydroCHLOROthiazide [HCTZ] 12.5 mg PO QDAY 02/07/18 11/25/18 02/07/18 History Active Meds: Active Medications Acetaminophen (Tylenol) 650 mg PO Q4H PRN PRN Reason: Headache Alprazolam (Xanax) 2 mg PO ONCE ONE Stop: 11/25/18 15:01 Aspirin (Aspirin) 325 mg PO QDAY [facility] Valproate Sodium 1,000 mg/ (Sodium Chloride) 110 mls @ 100 mls/hr IV ONCE PRN PRN Reason: Headache Magnesium Sulfate (Magnesium Sulfate 4gm/100ml) 4 gm in 100 mls @ 25 mls/hr IV PRN ONE Stop: 11/25/18 20:29 Morphine Sulfate (Morphine) 2 mg IV Q3H PRN PRN Reason: Pain, Moderate (4-6) Last Admin: 11/25/18 11:35 Dose: 2 mg Documented by: Nitroglycerin (Nitrostat) 0.4 mg SL .Q5MIN PRN PRN Reason: Chest Pain Nitroglycerin (Nitro-Bid 2%) 0.5 inch TP QIDNTG [facility]; Protocol Last Admin: 11/25/18 07:23 Dose: Not Given Documented by: Ondansetron HCl (Zofran) 4 mg IV Q8H PRN PRN Reason: Nausea And Vomiting Vitamin B Complex/Vitamin C (Allbee With C) 4 each PO QDAY [facility] Review of Systems All systems: negative (lightheaded with orthostasis by description, loud snoring and pauses according to her daughter but never tested (I suggested sleep apnea testing at her last admission), memory okay.) Physical Examination - Vital Signs Vital Signs: Vital Signs Temp Pulse Resp BP Pulse Ox 97.8 F 97 H 20 165/112 97 11/24/18 19:28 11/24/18 19:28 11/24/18 19:28 11/24/18 19:28 11/24/18 19:28 - Physical Exam Narrative exam: Gen. appearance: Well-developed but borderline for being severely obese early 30s -Turkish female, complaining of headache. HEENT: Atraumatic, normocephalic, no bruits. No TMJ click but no TMJ soreness though some soreness over frontal sinuses bilaterally. Oropharynx pink and moist. Neck: No bruits, pain with flexion but not stiff. Heart: No murmur or extra sounds. Extremities: 2+ dorsalis pedis pulses, no clubbing cyanosis or edema. Neurologic exam: Mental status: Awake alert oriented 3 after slowly counting of the days, gets 2 of 3 objects at 3 minutes, gives president but cannot give supervisor cooler service after usual prompts. Serial sevens are poor but gets 5+7=12. Spells WORLD backwards correctly, abstracts well, no right-left confusion, names pen but not its tip though gets comb and its teeth. Cranial nerves:nuñez are variable, PERRLA, EOMs full without nystagmus or diplopia, light touch and pinprick are intact in the face, right facial weakness, Ibarra is midline, palate rises symmetrically in the midline and gags are positive bilaterally, shoulder shrug is 5 bilaterally, tongue protrudes in the midline. Cerebellar: Finger to nose off target on the left, [id number] is intact on the right than only brief on the left but without dysmetria. Sensory: Light touch is diminished especially in the left arm and to a lesser degree in the left leg. Pinprick is diminished in the left arm and leg. Vibrations are decreased in the left toes. Double simultaneous stimulation is intact. Special tests: Tinel's is negative at the wrists and elbows bilaterally includi ng Guyon's canals. Motor exam upper extremities: No drift or pronation, apple peeler operator are 5 bilaterally, rapid alternating movements are slower on the left. Tone is normal, no atrophy or fasciculations are noted visually. Motor exam lower extremities: Lifts left leg 2 inches off the bed with effort and 4 inches for the right leg. Iliopsoas is 5 bilaterally, quadriceps is 3- give way on the left with valgus posture of left leg compared to 5 on the right. Anterior tibials and gastrocnemius are 5 bilaterally. Rapid alternating movements slower on the left. Tone is normal, no atrophy or fasciculations are noted visually. Reflexes: Palmomental, snout and jaw jerk are negative. Triceps are 1+ right and trace to 1 left, biceps and brachioradialis are 1+ right and 1 left. Augustin's is slightly positive on the right and negative on the left. Knee jerks and ankle jerks are 1+ bilaterally. Toes are mute on the right and downgoing on the left to Babinski testing. Results - Laboratory Findings CBC and BMP: 11/24/18 20:03 11/24/18 20:03 Abnormal Lab Findings: Abnormal Labs 11/24/18 11/24/18 11/24/18 20:03 20:03 21:16 [place] % (Auto) 8.7 H D-Dimer 318.58 H Total Creatine Kinase 670 H 11/25/18 13:18 [place] % (Auto) D-Dimer Total Creatine Kinase 422 H Assessment and Plan Impression: 1. Paresthesias 2. Classic migraine, intractable 3. Muscle cramps Plan: 1. Ordered C spine MRI today to add to brain MRI. Alprazolam ordered since claustrophobic. Probably does not need CT angios of head and neck since done last year. 2. Will order Depacon for headache, then MgS04 if Depacon fails. 3. Ordered B complex 4 tablets to help muscle cramps (had suggested B100 complex to her last time). 4. Ordered omeprazole and Tums. 5. Needs outpatient sleep apnea study as per last visit. 6. I told her she needs to stop smoking since it causes strokes. 60 minutes spent including review of CT scan of brain multiple images and discussion of need to stop smoking and need for cervical spine MRI in addition to brain MRI and need for alprazolam for claustrophobia and for sleep apnea testing. Thank you for an interesting consultation on this pleasant early 30s lady.
[2018-11-25] MEDS ORDERED: TUMS PO SCH (15:00)
[2018-11-25] MEDS ORDERED: ALLBEE WITH C PO SCH (15:00)
[2018-11-25] MEDS ORDERED: XANAX PO ONE (15:00)
[2018-11-25] MEDS: ASPIRIN PO SCH (15:44)
[2018-11-25] MEDS: PROTONIX PO SCH (15:45)
[2018-11-25] MEDS ORDERED: MAGNESIUM SULFATE 4GM/100ML 4 GM/100 ML BAG IV ONE (16:30)
--- NOTE | 2018-11-25 19:22 | Event Note ---
Date: 11/25/18 Patient presents with chest pain, left arm numbness. I have seen and examined her. She was seen by Neurologist.
--- NOTE | 2018-11-25 19:22 | Progress Note ---
Hospitalist Physical - Constitutional Vitals: Temp Pulse Resp BP Pulse Ox 98.2 F 77 20 99/65 98 11/25/18 16:50 11/25/18 14:12 11/25/18 16:50 11/25/18 16:50 11/25/18 10:13 Results - Labs CBC & Chem 7: 11/24/18 20:03 11/24/18 20:03 Labs: Laboratory Last Values WBC 9.3 K/mm3 (4.5-11.0) 11/24/18 20:03 RBC 4.02 M/mm3 (3.65-5.03) 11/24/18 20:03 Hgb 12.2 gm/dl (10.1-14.3) 11/24/18 20:03 Hct 36.4 % (30.3-42.9) 11/24/18 20:03 MCV 91 fl (79-97) 11/24/18 20:03 MCH 30 pg (28-32) 11/24/18 20:03 MCHC 34 % (30-34) 11/24/18 20:03 RDW 14.0 % (13.2-15.2) 11/24/18 20:03 Plt Count 401 K/mm3 (140-440) 11/24/18 20:03 Lymph % (Auto) 22.4 % (13.4-35.0) 11/24/18 20:03 [place] % (Auto) 8.7 % (0.0-7.3) H 11/24/18 20:03 Eos % (Auto) 2.5 % (0.0-4.3) 11/24/18 20:03 Baso % (Auto) 0.6 % (0.0-1.8) 11/24/18 20:03 Lymph # 2.1 K/mm3 (1.2-5.4) 11/24/18 20:03 [place] # 0.8 K/mm3 (0.0-0.8) 11/24/18 20:03 Eos # 0.2 K/mm3 (0.0-0.4) 11/24/18 20:03 Baso # 0.1 K/mm3 (0.0-0.1) 11/24/18 20:03 Seg Neutrophils % 65.8 % (40.0-70.0) 11/24/18 20:03 Seg Neutrophils # 6.1 K/mm3 (1.8-7.7) 11/24/18 20:03 PT 13.3 Sec. (12.2-14.9) 11/24/18 20:03 INR 0.95 (0.87-1.13) 11/24/18 20:03 APTT 28.3 Sec. (24.2-36.6) 11/24/18 20:03 Thrombin Time 15.1 Sec. (15.1-19.6) 11/24/18 20:03 D-Dimer 318.58 ng/mlDDU (0-234) H 11/24/18 21:16 Sodium 140 mmol/L (137-145) 11/24/18 20:03 Potassium 3.7 mmol/L (3.6-5.0) 11/24/18 20:03 Chloride 99.7 mmol/L (98-107) 11/24/18 20:03 Carbon Dioxide 27 mmol/L (22-30) 11/24/18 20:03 Anion Gap 17 mmol/L 11/24/18 20:03 BUN 12 mg/dL (7-17) 11/24/18 20:03 Creatinine 0.7 mg/dL (0.7-1.2) 11/24/18 20:03 Estimated GFR > 60 ml/min 11/24/18 20:03 BUN/Creatinine Ratio 17 % 11/24/18 20:03 Glucose 90 mg/dL (65-100) 11/24/18 20:03 POC Glucose 94 (70-105) 11/24/18 19:28 Lactic Acid 1.00 mmol/L (0.7-2.0) 11/25/18 13:18 Calcium 9.4 mg/dL (8.4-10.2) 11/24/18 20:03 Total Bilirubin 0.20 mg/dL (0.1-1.2) 11/24/18 20:03 AST 29 units/L (5-40) 11/24/18 20:03 ALT 33 units/L (7-56) 11/24/18 20:03 Alkaline Phosphatase 93 units/L (35-129) 11/24/18 20:03 Total Creatine Kinase 422 units/L (30-135) H 11/25/18 13:18 CK-MB (CK-2) 1.9 ng/mL (0.0-4.0) 11/25/18 13:18 CK-MB (CK-2) Rel Index 0.4 (0-4) 11/25/18 13:18 Troponin T < 0.010 ng/mL (0.00-0.029) 11/25/18 13:18 Total Protein 7.7 g/dL (6.3-8.2) 11/24/18 20:03 Albumin 4.0 g/dL (3.9-5) 11/24/18 20:03 Albumin/Globulin Ratio 1.1 % 11/24/18 20:03 HCG, Qual Negative (Negative) 11/24/18 21:10 Urine Color Yellow (Yellow) 11/24/18 19:30 Urine Turbidity Clear (Clear) 11/24/18 19:30 Urine pH 5.0 (5.0-7.0) 11/24/18 19:30 Ur Specific [place] 1.024 (1.003-1.030) 11/24/18 19:30 Urine Protein <15 mg/dl mg/dL (Negative) 11/24/18 19:30 Urine Glucose (UA) Neg mg/dL (Negative) 11/24/18 19:30 Urine Ketones Neg mg/dL (Negative) 11/24/18 19:30 Urine Blood Sm (Negative) 11/24/18 19:30 Urine Nitrite Neg (Negative) 11/24/18 19:30 Urine Bilirubin Neg (Negative) 11/24/18 19:30 Urine Urobilinogen < 2.0 mg/dL (<2.0) 11/24/18 19:30 Ur Leukocyte Esterase Neg (Negative) 11/24/18 19:30 Urine WBC (Auto) 2.0 /HPF (0.0-6.0) 11/24/18 19:30 Urine RBC (Auto) 3.0 /HPF (0.0-6.0) 11/24/18 19:30 U Epithel Cells (Auto) 1.0 /HPF (0-13.0) 11/24/18 19:30 Urine Bacteria (Auto) 1+ /HPF (Negative) 11/24/18 19:30 Hyaline Casts 6 /LPF 11/24/18 19:30 Urine Mucus Few /HPF 11/24/18 19:30 Urine HCG, Qual Negative (Negative) 11/24/18 19:30 Urine Opiates Screen Presumptive negative 11/24/18 19:30 Urine Methadone Screen Presumptive negative 11/24/18 19:30 Ur Barbiturates Screen Presumptive negative 11/24/18 19:30 Ur Phencyclidine Scrn Presumptive negative 11/24/18 19:30 Ur Amphetamines Screen Presumptive negative 11/24/18 19:30 U Benzodiazepines Scrn Presumptive negative 11/24/18 19:30 Urine Cocaine Screen Presumptive positive 11/24/18 19:30 U Marijuana (THC) Screen Presumptive negative 11/24/18 19:30 Drugs of Abuse Note Disclamer 11/24/18 19:30 Plasma/Serum Alcohol < 0.01 % (0-0.07) 11/24/18 20:03 Active Medications - Current Medications Current Medications: Generic Name Dose Route Start Last Admin Trade Name Freq PRN Reason Stop Dose Admin Acetaminophen 650 mg 11/25/18 01:33 Tylenol PO Q4H PRN Headache Aspirin 325 mg 11/25/18 10:00 11/25/18 15:44 Aspirin PO 325 mg QDAY [facility] Administration Calcium Carbonate/Glycine 1,000 mg 11/25/18 15:00 Tums PO PRN [facility] Valproate Sodium 1,000 mg/ 110 mls @ 100 mls/hr 11/25/18 14:31 Sodium Chloride IV ONCE PRN Headache Magnesium Sulfate 4 gm in 100 mls @ 25 mls/hr 11/25/18 16:30 11/25/18 17:59 Magnesium Sulfate 4gm/100ml IV 11/25/18 20:29 25 mls/hr PRN ONE Administration Morphine Sulfate 2 mg 11/25/18 01:32 11/25/18 11:35 Morphine IV 2 mg Q3H PRN Administration Pain, Moderate (4-6) Nitroglycerin 0.4 mg 11/25/18 01:32 Nitrostat SL .Q5MIN PRN Chest Pain Nitroglycerin 0.5 inch 11/25/18 06:00 11/25/18 17:37 Nitro-Bid 2% TP Not Given QIDNTG [facility] Protocol Ondansetron HCl 4 mg 11/25/18 01:33 Zofran IV Q8H PRN Nausea And Vomiting Pantoprazole Sodium 40 mg 11/25/18 15:00 11/25/18 15:45 Protonix PO 40 mg QDAY [facility] Administration Vitamin B Complex/Vitamin C 4 each 11/25/18 15:00 Allbee With C PO QDAY [facility]
[2018-11-25] MEDS: ALLBEE WITH C PO SCH (22:46)
--- NOTE | 2018-11-25 23:08 | Treadmill Report ---
THALLIUM STRESS TEST LEFT VENTRICLE: Left ventricular chamber size is within normal spread. Perfusion defect demonstrates a small fixed apical defect, consistent with normal apical thinning, cannot exclude breast attenuation artifact. No significant reversible defects identified. Gated analysis demonstrates normal left ventricular systolic function, ejection fraction of 55%. CONCLUSION: Suboptimal perfusion study, with no demonstrable ischemic coronary disease. Clinical correlation is recommended. JOB# [id number] CA/NTS
[2018-11-26] MEDS: NITRO-BID 2% TP SCH ×3 (07:13→23:31)
[2018-11-26] MEDS: MORPHINE IV PRN (08:08)
[2018-11-26] MEDS: HEPARIN SUB-Q SCH ×3 (08:10→23:25)
[2018-11-26] MEDS ORDERED: ATIVAN IM ONE ×2 (09:30→14:45)
[2018-11-26] MEDS: ALLBEE WITH C PO SCH (14:29)
[2018-11-26] MEDS: ASPIRIN PO SCH (14:29)
[2018-11-26] MEDS: PROTONIX PO SCH (14:30)
--- NOTE | 2018-11-26 14:56 | Progress Note ---
Assessment and Plan - Patient Problems (1) Chest pain Status: Acute Plan to address problem: Sress test normal (2) Cocaine abuse Status: Acute Plan to address problem: Counselled (3) DVT prophylaxis Status: Acute Plan to address problem: On lovenox Subjective Date of service: 11/26/18 Principal diagnosis: Chest pain Interval history: Doing better Objective - Constitutional Vitals: Vital Signs - 12hr 11/26/18 11/26/18 11/26/18 04:00 06:00 08:31 Temperature 97.9 F 98.6 F Pulse Rate 97 H 87 78 Respiratory 18 20 Rate Blood Pressure 109/58 Blood Pressure 96/58 [Left] O2 Sat by Pulse 98 99 Oximetry 11/26/18 11/26/18 11/26/18 11:32 11:33 11:34 Temperature 98.0 F 98.0 F 98.0 F Pulse Rate 75 Respiratory 20 20 20 Rate Blood Pressure 113/70 Blood Pressure [Left] O2 Sat by Pulse 98 Oximetry General appearance: Present: no acute distress, well-nourished - EENT Eyes: PERRL, EOM intact ENT: hearing intact, clear oral mucosa Ears: bilateral: normal - Neck Neck: supple, normal ROM - Respiratory Respiratory effort: normal Respiratory: bilateral: CTA - Breasts Breasts: normal - Cardiovascular Heart rate: 78 Rhythm: regular Heart Sounds: Present: S1 & S2. Absent: gallop, rub Extremities: pulses intact, No edema, normal color, Full ROM - Gastrointestinal General gastrointestinal: Present: soft, non-tender, non-distended, normal bowel sounds - Genitourinary Female genitourinary: normal - Integumentary Integumentary: clear, warm, dry - Musculoskeletal Musculoskeletal: 1, strength equal bilaterally - Neurologic Neurologic: moves all extremities - Psychiatric Psychiatric: memory intact, appropriate mood/affect, intact judgment & insight - Labs CBC & Chem 7: 11/24/18 20:03 11/24/18 20:03
--- NOTE | 2018-11-26 17:33 | Magnetic Resonance Report ---
PROCEDURE: MR BRAIN WO CON TECHNIQUE: MRI examination of the brain without IV contrast HISTORY: TINGLING AND NUMBNESS TO LEFT ARM COMPARISONS: Head CT 11/24/2018 FINDINGS: Retention cyst appears unchanged in left sphenoid sinus posteriorly. There is nonspecific CSF prominence in the sella turcica. This may reflect pituitary atrophy, empty s bev syndrome, and/or developmental variation. The included air filled sinuses contain no acute fluid level. A single focus of T2 hyperintensity in the cerebral white matter, while nonspecific, is present poste riorly in the central right occipital lobe white matter. It is not visible on comparison CT. The brain is without mass, mass effect, hemorrhage, or acute infarct. There are no areas of brain res tricted diffusion to suggest an acute ischemic infarct. There is no midline shift or brain edema. IMPRESSION: No acute CVA or brain mass A single focus of T2 hyperintensity in the cerebral white matter, while nonspecific, is present poste riorly in the central right occipital lobe white matter. Although usually attributed to chronic ische maia gliosis, It can occur secondary to the normal aging process, hypertension, vasculitis, migraine r elated changes, or arterial sclerotic vascular disease. The differential includes demyelination in th e appropriate clinical setting. Sulci and ventricles are age-appropriate. This document is electronically signed by Benny Maria MD., November 26 2018 05:31:30 PM ET
--- NOTE | 2018-11-26 18:15 | Event Note ---
Date: 11/26/18 Brain MRI shows old right occipital lacunar shaped fuzzy lesion, unchanged from last summer and which does not explain symptoms. C spine MRI shows minor bulging on my review, also does not explain symptoms. CPK elevated still, was not elevated in 2018 or 2017 but was in 2015. Listed as being on atorvastatin at home on Dr. Ware's ER note this admission. Sent text message about this to Dr. Laura and suggested stopping atorvastin for 1-2 weeks as outpatient, then if better, try pravastatin via PCP since much less likely to cause myalgias. Per UpToDate, atorvastatin can also cause paresthesias in <1% of patients.
--- NOTE | 2018-11-26 19:22 | Magnetic Resonance Report ---
PROCEDURE: MRI cervical spine without contrast. TECHNIQUE: Magnetic resonance imaging of the cervical spine was performed using standard pulse seque nces without contrast material. HISTORY: neck pain to left arm with paresthesias COMPARISONS: None. FINDINGS: The cervical vertebrae have normal height and alignment. There are no fractures. There is no subluxat ion. There is normal signal intensity from the bone marrow. The disc spaces appear adequate. There ar e no definite disc protrusions. The spinal canal is widely patent. The cervical cord has a normal camille iber and normal signal intensity. IMPRESSION: No significant abnormality identified. This document is electronically signed by Jan Ruiz MD., November 26 2018 07:20:00 PM ET
[2018-11-27] MEDS: NITRO-BID 2% TP SCH ×4 (06:57→17:26)
[2018-11-27] MEDS: HEPARIN SUB-Q SCH ×2 (06:57→14:50)
[2018-11-27] MEDS: ALLBEE WITH C PO SCH (10:23)
[2018-11-27] MEDS: ASPIRIN PO SCH (10:23)
[2018-11-27] MEDS: PROTONIX PO SCH (10:23)
[2018-11-27 17:48] VITALS: BP 112/79
--- NOTE | 2018-11-27 18:23 | Discharge Summary ---
Providers - Providers Date of Admission: 11/25/18 01:26 Date of discharge: 11/27/18 Attending physician: MARIA GUADALUPE FALLON 11/25/18 05:32 Consult to Physician [CONS] Routine Comment: Consulting Provider: CONRAD RIVAS Physician Instructions: Reason For Exam: TINGLING AND NUMBNESS TO LEFT ARM WITH HX. OF CVA Primary care physician: MARISELA CAMACHO Hospitalization Condition: Fair Disposition: DC-01 TO HOME OR SELFCARE Core Measure Documentation - Palliative Care Palliative Care/ Comfort Measures: Not Applicable - Core Measures Any of the following diagnoses?: none Exam - Constitutional Vitals: Temp Pulse Resp BP Pulse Ox 98.6 F 100 H 20 112/79 97 11/27/18 17:46 11/27/18 17:47 11/27/18 17:47 11/27/18 17:47 11/27/18 17:47 General appearance: Present: no acute distress, well-nourished - EENT Eyes: Present: PERRL ENT: hearing intact, clear oral mucosa - Neck Neck: Present: supple, normal ROM - Respiratory Respiratory effort: normal Respiratory: bilateral: CTA - Cardiovascular Heart Sounds: Present: S1 & S2. Absent: rub, click - Extremities Extremities: pulses symmetrical, No edema Peripheral Pulses: within normal limits - Abdominal General gastrointestinal: Present: soft, non-tender, non-distended, normal bowel sounds Female genitourinary: Present: normal - Integumentary Integumentary: Present: clear, warm, dry - Musculoskeletal Musculoskeletal: gait normal, strength equal bilaterally - Psychiatric Psychiatric: appropriate mood/affect, intact judgment & insight - Neurologic Neurologic: CNII-XII intact, moves all extremities Plan Activity: no restrictions Diet: low salt Follow up with: MARISELA CAMACHO MD [Primary Care Provider] - 3-5 Days RENAE BRANHAM MD [Staff Physician] - 7 Days Prescriptions: Aspirin [Adult Aspirin] 81 mg PO QDAY #100 tablet. amLODIPine [Norvasc] 10 mg PO DAILY #30 tab
== END 2018-11-27 18:43 | disposition home or self-care (01) | DRG 103 ==
LOC: ED 19:08 → 4A 11-25 01:26
PROVIDERS: ADMIT Internal Medicine; ATTEND Internal Medicine
DX: G43.119 Migraine with aura, intractable, without status migrainosus (principal); R07.9 Chest pain, unspecified; F14.10 Cocaine abuse, uncomplicated; I69.351 Hemiplegia and hemiparesis following cerebral infarction affecting right dominant side; R20.2 Paresthesia of skin; R25.2 Cramp and spasm; I11.0 Hypertensive heart disease with heart failure; I50.9 Heart failure, unspecified; J44.9 Chronic obstructive pulmonary disease, unspecified; E66.9 Obesity, unspecified; F17.210 Nicotine dependence, cigarettes, uncomplicated; Z68.43 Body mass index [BMI] 50.0-59.9, adult; Z88.1 Allergy status to other antibiotic agents; Z88.0 Allergy status to penicillin
CPT/HCPCS: 36415; 70450; 70551; 71045; 71275; 72141; 78452; 80053; 80307; 80320; 81001; 81025; 82085; 82140; 82550; 82553; 82962; 84484; 84703; 85025; 85379; 85610; 85670; 85730; 93005; 93010; 93017; 96374; 99406; G0378; A9502; G0480; J1644; J2060; J2270; J2405; J2785; J3010; J3475